=== PATIENT | male | born 1945 | race Caucasian/White ===

== ENCOUNTER 2016-10-18 09:08 | Day surgery (SDC) | payer MEDICARE, BC ==
[2016-10-18] MEDS ORDERED: MIDAZOLAM HCL 2MG/2ML VIAL IV ONE (15:46)
[2016-10-18] MEDS ORDERED: LIDOCAINE 2% MDV (20MG/ML) 20ML VIAL IV ONE (15:46)
[2016-10-18] MEDS ORDERED: PROPOFOL 10 MG/ML VIAL IV ONE (15:46)
--- NOTE | 2016-10-19 16:16 | Operative Note ---
DATE OF SURGERY: Surgeon: Teo Starks DO Referring physician: Arnaldo De La O DO PREOPERATIVE DIAGNOSIS: Personal history of colon polyps. POSTOPERATIVE DIAGNOSES: 1. Sigmoid diverticulosis. 2. Sigmoid polyps x5 status post cold forceps removal. 3. Transverse colon polyp x1, status post cold forceps removal. OPERATION: COLONOSCOPY WITH COLD FORCEP POLYPECTOMY X6. PREPARATION QUALITY: Good. ESTIMATED BLOOD LOSS: Minimal. SPECIMENS: Sigmoid and transverse polyps. COMPLICATIONS: None apparent. PROCEDURE: After informed consent was obtained with the patient, he was placed in the lateral decubitus position in the endoscopy suite, sedated and monitored by the Department of Anesthesia. Digital rectal exam was unremarkable. A well-lubricated PCF 180 colonoscope was inserted in the rectum and advanced to the cecum. The preparation quality was noted to be good. Once the endoscope was advanced to the cecum, the cecal cap, appendicial orifice, ileocecal valve were inspected and were unremarkable. The ascending colon was also unremarkable. The transverse colon its distal aspect revealed a diminutive polyp removed by cold forceps. The remainder of the transverse colon and descending colon were unrevealing. The sigmoid colon revealed 5 diminutive polyps, these were removed with the cold forceps. The remainder of the sigmoid colon was unrevealing other than diverticular changes. The rectum was unremarkable in forward and in J-turn views. The endoscope was straightened, the rectal ampulla deflated. The endoscope was removed. RECOMMENDATIONS: The patient should follow a high fiber diet. She should undergo repeat exam in 3 to 5 years pending tissue histology. As always, thank you for allowing me to participate in the care of your patient. CC: Dr. Arnaldo JACINTO
== END 2016-10-18 09:50 | disposition home or self-care (01) ==
LOC: HOP 09:08
PROVIDERS: ATTEND Internal Medicine Gastroenterology
DX: Z53.9 Procedure and treatment not carried out, unspecified reason (principal)

== ENCOUNTER 2016-10-18 12:38 | Emergency (ER) | payer MEDICARE, BC ==
--- NOTE | 2016-10-18 13:08 | Emergency Department Record ---
History of Present Illness - General Chief complaint: Facial Swelling Stated complaint: SWOLLEN LIP Time Seen by Provider: 10/18/16 13:07 Source: Patient, Family Mode of Arrival: Ambulatory Limitations: No limitations - History of Present Illness Initial Comments: The patient is here due to a 4 hour hx of his upper lip swelling. He denies any trouble swallowing, breathing, any tongue swelling, or any voice changes. The patient did have a Colonoscopy today but has never had any problems with anesthesia. He was placed on a combination Calcium channel stone and Robert Inhibitor for HTN about 2 months ago. MD Complaint: Allergic reaction, Facial swelling Onset/Timin -: Hour(s) Exposure: Other Severity: Mild Treatment Prior to Arrival: Ice Previous Allergy History: None - Related Data Home Medications Medication Instructions Recorded Confirmed Last Taken Amlodipine Besylate/Benazepril 1 tab PO ASDIR 10/18/16 10/18/16 10/18/16 [Amlodipine-Benazepril 10-20 mg] Dextromethorphan Polistirex 30 mg PO ASDIR 10/18/16 10/18/16 10/18/16 [Delsym] Previous Rx's Medication Instructions Recorded Prednisone [Prednisone 20Mg] 40 mg PO DAILY #10 tab 10/18/16 Verapamil HCl [Verapamil Sr] 120 mg PO DAILY #7 cap24h.pel 10/18/16 Allergies Allergy/AdvReac Type Severity Reaction Status Date / Time No Known Drug Allergies Allergy Verified 10/18/16 12:45 Travel Screening - Travel/Exposure Within Last 30 Days Have you traveled within the last 30 days?: No - Travel/Exposure Within Last Year Have you traveled outside the [place] in the last year?: No - Additonal Travel Details Have you been exposed to anyone with a communicable illness?: No - Travel Symptoms Symptom Screening: None Review of Systems Constitutional: Denies: Chills, Fever Eyes: Denies: Eye discharge ENT: Denies: Congestion Respiratory: Denies: Cough, Dyspnea Past Medical History - SOCIAL HISTORY Smoking Status: Current every day smoker Alcohol Use: Heavy Drug Use: None - RESPIRATORY Hx Respiratory Disorders: No - CARDIOVASCULAR Hx Cardio Disorders: Yes Hx Hypertension: Yes (? high blood pressure at [facility] office; (urology)) - NEURO Hx Neuro Disorders: No - GI Hx GI Disorders: Yes Hx of Polyps: Yes - Hx Genitourinary Disorders: Yes Hx Prostate Problems: Yes (prostate removed; Alex) - ENDOCRINE Hx Endocrine Disorders: No - MUSCULOSKELETAL Hx Musculoskeletal Disorders: No - PSYCH Hx Psych Problems: No - HEMATOLOGY/ONCOLOGY Hx Hematology/Oncology Disorders: Yes Hx Cancer: Yes (prostate) Hx Chemotherapy: No Hx Radiation Therapy: No Family Medical History Any Significant Family History?: Yes Hx Cancer: Father Physical Exam - General General Appearance: Alert, Oriented x3, Cooperative, No acute distress - Head Head exam: Atraumatic, Normocephalic, Normal inspection - Eye Eye exam: Normal appearance, PERRL - ENT ENT exam: negative: Normal exam Mouth exam: Tongue normal. negative: Normal external inspection (The upper lip is moderately swollen.), Muffled voice, Tongue elevation Throat exam: Normal inspection. negative: Tonsillar erythema, Tonsillar exudate - Neck Neck exam: Normal inspection, Full ROM. negative: Tenderness - Respiratory Respiratory exam: Normal lung sounds bilaterally. negative: Respiratory distress - Cardiovascular Cardiovascular Exam: Regular rate, Normal rhythm, Normal heart sounds Course Vital Signs 10/18/16 12:49 Temperature 99.1 F Pulse Rate 91 H Respiratory 18 Rate Blood Pressure 124/101 Pulse Ox 96 - Reevaluation(s) Reevaluation #1: 10/18/16 13:51 The patient is doing very well now. The lip swelling is no worse and may be very slightly better. He denies any trouble swallowing, breathing, or any voice changes. Reevaluation #2: The patient is doing very well at this time. He denies any new issues. He has no trouble breathing or swallowing and the lip swelling is slightly improved. I did discuss the case with Dr. De La O and he would like him to stop his present BP medicine and start on Verapamil. 10/18/16 14:40 Medical Decision Making - Data Complexity MDM Data: Labs Ordered and/or Reviewed - Lab Data Result diagrams: 10/18/16 13:19 10/18/16 13:19 Disposition Disposition: Discharge Clinical Impression: Angioedema Qualifiers: Encounter type: initial encounter Qualified Code(s): T78.3XXA - Angioneurotic edema, initial encounter Disposition: Home, Self-Care Condition: (1) Good Instructions: Angioedema (ED) Additional Instructions: Please stop the BP medicine that your are presently taking and start on the Verapamil. Please see Dr. De La O early next week for recheck. Please monitor your swelling and return to the ER for any increased swelling, or any tongue swelling, trouble breathing or trouble swallowing. Take 25 mg of Benadryl 4 times a day for 5 days along with the Prednisone. Prescriptions: Prednisone [Prednisone 20Mg] 40 mg PO DAILY #10 tab Verapamil HCl [Verapamil Sr] 120 mg PO DAILY #7 cap24h.pel Forms: Patient Portal Access Time of Disposition: 14:47
[2016-10-18] MEDS: DIPHENHYDRAMINE HCL IV 50 MG/ML VIAL IVP ONE (13:16)
[2016-10-18] MEDS: METHYLPREDNISOLONE PF 125MG/VIAL IVP ONE (13:16)
[2016-10-18 13:42] LABS: BASO % 1.4 % (0-6); EOS % 0.7 % (0-6); GRAN % 69.3 % (47-80); HEMATOCRIT 47.7 % (42.0-52.0); HEMOGLOBIN 15.9 gm/dl (14.0-18.0); LYMPH % 20.4 % (16-45); MEAN CELL VOLUME 98.8 fl (81-97); MEAN CORPUSCULAR HEMOGLOBIN 32.9 pg (27-33); MEAN CORPUSCULAR HGB CONC 33.3 g/dl (32-36); MEAN PLATELET VOLUME 10.9 fl (7.4-10.4); MONO % 8.2 % (0-9); PLATELET COUNT 257 K/uL (130-400); RED BLOOD COUNT 4.83 M/uL (4.40-5.70); RED CELL DISTRIBUTION WIDTH 13.6 % (11.5-14.5); WHITE BLOOD COUNT W/O DIFF 9.5 K/uL (4.2-12.2)
[2016-10-18 13:58] LABS: ALB/GLOB RATIO 1.5 (1.1-1.8); ALBUMIN 3.7 gm/dL (3.5-5.0); ALKALINE PHOSPHATASE 31 U/L (38-126); ALT/SGPT 45 U/L (21-72); ANION GAP 6.7 (7-16); AST/SGOT 25 U/L (17-59); BILIRUBIN,TOTAL 0.56 mg/dL (0.2-1.3); BLOOD UREA NITROGEN 14 mg/dL (9-20); CARBON DIOXIDE 25.3 mmol/L (22-30); EST GLOMERULAR FILTRATION RATE > 60 ml/min; GLUCOSE,RANDOM 120 mg/dL (70-110); TOTAL PROTEIN 6.2 gm/dL (6.3-8.2)
== END 2016-10-18 14:59 | disposition home or self-care (01) ==
LOC: ER 12:38
DX: Z86.010 Personal history of colon polyps (principal); K63.5 Polyp of colon; I10 Essential (primary) hypertension; T78.3XXA Angioneurotic edema, initial encounter; Z98.890 Other specified postprocedural states; F17.200 Nicotine dependence, unspecified, uncomplicated
CPT/HCPCS: 80053; 85025; 96374; 96375; 99284; J1200; J2930

== ENCOUNTER 2017-05-28 18:01 | Emergency (ER) | payer MEDICARE, BC ==
--- NOTE | 2017-05-28 18:14 | Emergency Department Record ---
History of Present Illness - General Chief Complaint: Cough Stated Complaint: COUGH,HEAD CONGESTION Time Seen by Provider: 05/28/17 18:13 Source: Patient Mode of Arrival: Ambulatory Limitations: No limitations - History of Present Illness Initial Comments: The patient is here due to a cough, congestion, nasal drainage, mild ST and mild sputum production for 2-3 days. He denies any CP, SOB, ROBERTS, or fever. The patient thinks he is coming down with a sinus infection. MD Complaint: Cough, Nasal congestion, Rhinorrhea, Sinus pain, Sore throat Onset/Timin -: Days(s) Severity: Mild Severity scale (1-10): 3 Consistency: Intermittent - Related Data Previous Rx's Medication Instructions Recorded Verapamil HCl [Verapamil Sr] 120 mg PO DAILY #7 cap24h.pel 10/18/16 Doxycycline Monohydrate [Mondoxyne 100 mg PO BID #14 capsule 05/28/17 Nl] Fluticasone Propionate [Flonase] 2 spray EACH NARES DAILY #1 bottle 05/28/17 Allergies Allergy/AdvReac Type Severity Reaction Status Date / Time No Known Drug Allergies Allergy Verified 05/28/17 18:08 Travel Screening - Travel/Exposure Within Last 30 Days Have you traveled within the last 30 days?: No Review of Systems Constitutional: Denies: Chills, Fever Eyes: Denies: Eye discharge ENT: Reports: Congestion Respiratory: Reports: Cough. Denies: Dyspnea Past Medical History - SOCIAL HISTORY Smoking Status: Current every day smoker Alcohol Use: None Drug Use: None - RESPIRATORY Hx Respiratory Disorders: No - CARDIOVASCULAR Hx Cardio Disorders: Yes Hx Hypertension: Yes - NEURO Hx Neuro Disorders: No - GI Hx GI Disorders: Yes Hx of Polyps: Yes - Hx Genitourinary Disorders: Yes Hx Prostate Problems: Yes (prostate removed; Alex) - ENDOCRINE Hx Endocrine Disorders: No - MUSCULOSKELETAL Hx Musculoskeletal Disorders: No - PSYCH Hx Psych Problems: No - HEMATOLOGY/ONCOLOGY Hx Hematology/Oncology Disorders: Yes Hx Cancer: Yes (prostate) Hx Chemotherapy: No Hx Radiation Therapy: No Family Medical History Any Significant Family History?: Yes Hx Cancer: Father Physical Exam - General General Appearance: Alert, Oriented x3, Cooperative, No acute distress - Head Head exam: Atraumatic, Normocephalic, Normal inspection - Eye Eye exam: Normal appearance, PERRL - ENT ENT exam: Normal exam, Mucous membranes moist, Normal external ear exam, Normal orophraynx, TM's normal bilaterally Throat exam: Normal inspection. negative: Tonsillar erythema, Tonsillar exudate - Neck Neck exam: Normal inspection, Full ROM. negative: Lymphadenopathy, Meningismus , Tenderness - Respiratory Respiratory exam: Normal lung sounds bilaterally. negative: Respiratory distress - Cardiovascular Cardiovascular Exam: Regular rate, Normal rhythm, Normal heart sounds - GI/Abdominal GI/Abdominal exam: Soft, Normal bowel sounds. negative: Tenderness - Extremities Extremities exam: Normal inspection, Full ROM, Normal capillary refill. negative: Tenderness - Neurological Neurological exam: Alert, Normal gait. negative: Abnormal gait, Motor sensory deficit Course Vital Signs 05/28/17 18:04 Temperature 98.6 F Pulse Rate 89 Respiratory 18 Rate Blood Pressure 184/107 Pulse Ox 96 - Reevaluation(s) Reevaluation #1: I explained to the patient we will treat him with Flonase and Doxycycline for the URI and have him recheck with his PCP later this week to have his Bp rechecked. 05/28/17 18:19 Disposition Disposition: Discharge Clinical Impression: URI (upper respiratory infection) Qualifiers: URI type: unspecified URI Qualified Code(s): J06.9 - Acute upper respiratory infection, unspecified Disposition: Home, Self-Care Condition: (2) Stable Instructions: Cold Symptoms (ED) Additional Instructions: Please take the Doxycycline and Flonase as directed. Please see your PCP later this week for recheck and to have your BP rechecked. Please return to the ER for any worsening symptoms, Headache, Chest pain or any trouble breathing. Prescriptions: Doxycycline Monohydrate [Mondoxyne Nl] 100 mg PO BID #14 capsule Fluticasone Propionate [Flonase] 2 spray EACH NARES DAILY #1 bottle Forms: Patient Portal Access Time of Disposition: 18:21 Quality - Quality Measures Quality Measures: N/A - Blood Pressure Screening View Details: Yes Does Patient Have Any of the Following: Active Dx of HTN Blood Pressure Classification: Hypertensive Reading Systolic Measurement: 184 Diastolic Measurement: 107 Screening for High Blood Pressure: Patient Exclusion, Hx of HTN [[id number]]
== END 2017-05-28 18:36 | disposition home or self-care (01) ==
LOC: ER 18:01
DX: J06.9 Acute upper respiratory infection, unspecified (principal); R05 Cough; R51 Headache; R19.7 Diarrhea, unspecified; F17.210 Nicotine dependence, cigarettes, uncomplicated
CPT/HCPCS: 99282